=== PATIENT | female | born 1990 | race Caucasian/White ===

== ENCOUNTER 2019-05-05 16:22 | Inpatient (IN) | payer OTHER ==
[~2019-05-05] VITALS: Ht 170.2 cm; Wt 78.5 kg
[2019-05-05 16:23] VITALS: BP 139/69
--- NOTE | 2019-05-05 16:25 | NUR ---
TO LOBBY A/W BED AMBULATORY
--- NOTE | 2019-05-05 17:49 | NUR ---
PT AMBULATED TO ER BED 08
--- NOTE | 2019-05-05 18:15 | NUR ---
PT C/O LOWER ABD PAIN RADIATING TO L SIDE WITH N/V/D SINCE 04/20/19. LAST EMESIS EPISODE WAS AT 1200 THIS AM. DENIES BLOOD IN VOMIT OR DIARRHEA. ABDOMEN SOFT AND FLAT, NON TENDER TO TOUCH. BOWEL SOUNDS ACTIVE IN ALL 4 QUADRANTS. PAIN 4/10 TO ABDOMEN. DENIES DYSURIA. PT ALERT AND AWAKE. HR 101 UPON TRIAGE. PT ALERT AND AWAKE, AMBULATORY WITH STEADY GAIT PMH- ASTHMA, HYPERACTIVE THYROID
--- NOTE | 2019-05-05 18:19 | NUR ---
PT STATES SHE IS UNABLE TO GIVE URINE AT THIS TIME
--- NOTE | 2019-05-05 18:37 | NUR ---
PT PLACED ON CARIDAC MONITOR. HR 141 WHEN TAKEN. HR WAS 101 UPON TRIAGE
--- NOTE | 2019-05-05 18:38 | NUR ---
DR BARNEY AT BEDSIDE
[2019-05-05] MEDS ORDERED: METOPROLOL 5 MG/5 ML VIAL IVP ONE ×2 (18:40→21:35)
[2019-05-05] MEDS ORDERED: NACL 0.9% 500 ML IV ONE (18:40)
[2019-05-05] MEDS ORDERED: PROPYLTHIOURACIL 50 MG TAB PO ONE (18:40)
--- NOTE | 2019-05-05 18:40 | NUR ---
METROPOLOL 5MG/5ML X2 TOTAL OF 10ML IVP
--- NOTE | 2019-05-05 18:53 | NUR ---
CALLED HOUSE SUP FOR MED PTU
--- NOTE | 2019-05-05 18:58 | NUR ---
NADRS AT THIS TIME.
--- NOTE | 2019-05-05 19:04 | NUR ---
CALLED CREATIVE SERVICES WRITER FOR PTU, HE DOES NOT KNOW IF WE HAVE IT. HE WILL CHECK AND GET BACK TO US
--- NOTE | 2019-05-05 19:10 | NUR ---
CALLED MARKETING PROGRAM COORDINATOR FOR MEDICATION. PK MADE AWARE.
[2019-05-05 19:11] LABS: BASOPHILS % (AUTO) 0.2 % (0.0-2.0); EOSINOPHILS # (AUTO) 0.1 K/uL (0-0.4); EOSINOPHILS % (AUTO) 2.1 % (0.0-4.0); HEMATOCRIT 37.6 % (36-48); HEMOGLOBIN 12.5 g/dL (12.0-16.0); LYMPHOCYTES # (AUTO) 1.2 K/uL (2.5-16.5); MEAN CORPUSCULAR HEMOGLOBIN 27 pg (27-31); MEAN CORPUSCULAR HGB CONC 33 g/dL (33-37); MEAN CORPUSCULAR VOLUME 80.8 fL (80-94); MONOCYTES # (AUTO) 0.8 K/uL (0.8-1.0); NEUTROPHILS # (AUTO) 4.2 K/uL (1.8-7.7); NEUTROPHILS % (AUTO) 66.7 % (42.2-75.2); PLATELET COUNT (AUTO) 147 K/uL (140-450); RED BLOOD CELL COUNT(AUTO) 4.66 MIL/uL (4.20-5.40); RED CELL DISTRIBUTION WIDTH 12.7 % (11.6-13.7); WHITE BLOOD COUNT (AUTO) 6.3 K/uL (4.8-10.8)
--- NOTE | 2019-05-05 19:12 | NUR ---
CATTLE DIPPER CALLED AND STATED THAT PRODUCT FINISHER PHARMACIST IS COMING IN. ETA 30 MIN. ERMD MADE AWARE
--- NOTE | 2019-05-05 19:21 | NUR ---
RECEIVED REPORT FROM RAVIN SHANNON. TRANSFER OF CARE AT THIS TIME.
--- NOTE | 2019-05-05 19:24 | NUR ---
PT HEART RATE LOWERED AFTER METOPROLOL GIVEN TO PT. PT PLACED ON MONITOR. RESTING IN BED ON CELLPHONE. WILL CONTINUE TO MONITOR
[2019-05-05 19:26] LABS: ANION GAP 13.4 (8-16); CARBON DIOXIDE 27.2 mmol/L (21-32); CHLORIDE 105 mmol/L (98-107); CREATININE 0.3 mg/dL (0.6-1.3); GFR ARICAN-AMERICAN 343 mL/min (>90); GLUCOSE 94 mg/dL (74-106); POTASSIUM 3.6 mmol/L (3.5-5.1); SODIUM SERUM 142 mmol/L (136-145); UREA NITROGEN, BLOOD 12 mg/dL (7-18)
[2019-05-05 19:41] LABS: ALBUMIN 3.5 g/dL (3.4-5.0); ASPARTATE AMINOTRANSFERASE 32 U/L (15-37); FREE T4 (FREE THYROXINE) 12.54 ng/dL (0.76-1.46); THYROID STIMULATING HORMONE < 0.01 uIU/mL (0.34-3.74); TOTAL BILIRUBIN 2.4 mg/dL (0.0-1.0)
--- NOTE | 2019-05-05 20:19 | NUR ---
PT RESTING IN BED, POSITIONED FOR COMFORT. BED LOCKED AND IN LOW POSITION. X2 SIDE RAILS RAISED. VSS. WILL CONTINUE TO MONITOR.
[2019-05-05] MEDS ORDERED: TAP5 PO (20:50)
--- NOTE | 2019-05-05 21:32 | NUR ---
PT RESTING IN BED, DENIES ANY PAIN. HR REMAINS AT 199. NO FEVER NOTED. RR EVEN AND UNLABORED. PT CALM AND PLEASANT. VSS. WILL CONTINUE TO MONITOR.
--- NOTE | 2019-05-05 22:44 | NUR ---
Patient will be admitted to care of DR EMERSON. Admited to TELE. Will go to room 105B. Belongings list completed. Report to RAVIN OLSEN.
[2019-05-05 22:56] VITALS: BP 122/82
--- NOTE | 2019-05-05 22:56 | NUR ---
[facility] , [facility] , NID -O2 SAT 99% BP WNL , AFEBRILE , IV SITE INTACT AND PATENT , AMBULATE TO BED - COOPERATIVE ,ON CARDIAC MONITORING , WITH HX OF OVER ACTIVE THYROID . ADMISSION ASSESSMENT DONE - MRSA SPECIMEN COLLECTED AND SEND TO LAB.PLAN OF CARE DISCUSSED AND VERBALIZED UNDERSTANDING - CALL LIGHT WITHIN REACH . WILL CONT. TO MONITOR. Addendum: 05/06/19 at 0406 by Robyn Israel RN CALL LIGHT WITHIN REACH . REMINDS HER THE USE OG CALL LIGHT WHENEVER SHE NEEDED ANYTHING/ HELP . ON SAFETY / FALL PRECAUTION PROTOCOL.
--- NOTE | 2019-05-05 23:15 | NUR ---
ON CARDIAC DIET OEDERED BY COMMERCIAL SALES DIRECTOR - DR Ronny MATA - PT ATE FOOD - TOLERATED.
--- NOTE | 2019-05-06 | NUR ---
CR 124 - MADE ROUNDS , PT. COMFORTABLY LYING ON BED - NO COMPLAIN MADE AT THIS TIME.
--- NOTE | 2019-05-06 02:00 | NUR ---
MADE ROUNDS - SLEEPING - CHEST RISE AND FALL EQUALLY - WILL CONT. TO MONITOR.
[2019-05-06 04:00] VITALS: BP 130/70
--- NOTE | 2019-05-06 04:25 | NUR ---
CR 124 , PT SAID SHE FEELS LIKE SHE WILL HAVE ASTHMA ATTACK - REFER TO SUPERVISOR MARBLE -DR Ronny JIMENEZ.
--- NOTE | 2019-05-06 04:30 | NUR ---
DR. MATA CALL BACK AND MADE AND ORDER , CARRIED OUT - WILL REFER TO RT FOR FURTHER ASSESSMENT .
[2019-05-06] MEDS ORDERED: METOPROLOL 25 MG TAB PO SCH (04:35)
--- NOTE | 2019-05-06 04:45 | NUR ---
S/E BY RT - HE SAID PT HAS NO WHEEZES , LUNGS ARE CLEAR . PT REQUESTING IF SHE WILL USE HER OWN ALBUTEROL NEEDED .- WILL REFER TO MANAGER HEALTH.
--- NOTE | 2019-05-06 07:15 | NUR ---
RECEIVED BEDSIDE REPORT FROM NIGHTSHIFT NURSE. PT ASLEEP IN BED. RESPONSIVE TO VERBAL AND TACTILE STIMULI. ABLE TO MAKE NEEDS KNOWN. RESPIRATIONS EVEN AND UNLABORED WITH NO SOB OR RESPIRATORY DISTRESS. IV SITE LA 20G CLEAN,DRY, AND INTACT. NO COMPLICATIONS NOTED. SAFETY MEASURES IN PLACE. WILL CONTINUE TO MONITOR.
[2019-05-06 08:00] VITALS: BP 136/76
--- NOTE | 2019-05-06 09:07 | NUR ---
PATIENT HAS BEEN SCREENED AND CATEGORIZED HIGH NUTRITION RISK. PATIENT WILL BE SEEN WITHIN 1-2 DAYS OF ADMISSION. 05/05/19-05/07/[address]
--- NOTE | 2019-05-06 10:00 | NUR ---
PT RESTING IN BED. ABLE TO MAKE NEEDS KNOWN. RESPIRATIONS EVEN AND UNLABORED WITH NO SOB OR RESPIRATORY DISTRESS. SKIN WARM AND DRY TO TOUCH. NO COMPLAINTS OR CONCERNS. SAFETY MEASURES IN PLACE.
--- NOTE | 2019-05-06 11:12 | NUR ---
HOURLY ROUNDING. PT RESTING IN BED. NO COMPLAINTS OR CONCERNS. ABLE TO MAKE NEEDS KNOWN. RESPIRATIONS EVEN AND UNLABORED WITH NO SOB OR RESPIRATORY DISTRESS. SAFETY MEASURES IN PLACE
[2019-05-06 12:00] VITALS: BP 134/74
[2019-05-06] MEDS ORDERED: PROPRANOLOL 20 MG TAB PO SCH (12:55)
[2019-05-06] MEDS ORDERED: PROPYLTHIOURACIL 50 MG TAB PO SCH (12:56)
--- NOTE | 2019-05-06 13:15 | NUR ---
Reed Dipper Note: Basic Screen: Yes High Risk DC Screen [place]: KAITY Vee Relationship: SIGNIFICANT OTHER Pre-Admission Living Arrangements: Lives with Other Prior ADL Independent Current Home Health Name/Tel: N/A Current DME/02 Name/Tel: N/A Current Hospice Name/Tel: N/A Current Dialysis Name/Tel: N/A Healthcare Decision Maker: Patient Advance Directive No - REFUSED Information Taught: Advance Directive Community Resources Person Taught: Patient Teaching Tools: Verbal Factors Affecting Learning: None Participation Level: Refused Evaluation: Verbalizes Understanding Needs Additional Education: No Discipline: Case Mgt/Social Svcs Tentative Discharge Plan/Destination: No Needs Identified Will require assistance post discharge: No Referred to [facility]ogs[facility] Stock Clerk: No Tentative Discharge Plan Summary: Patient is a 29-year-old female admitted for abdominal pain. Patient has PMHX of grave's disease, hyperthyroidism, and asthma. Patient was admitted from home. SW verified demographics with patient. Patient reports no history of mental health and no history of substance abuse. SW provided eduation on advanced directive and patient refused. Patient's tentative discharge plan is to return home. No further needs identified. Signature: MOSES Piedra Date: May 06, 2019 Time: 13:15
[2019-05-06] MEDS: PROPRANOLOL 20 MG TAB PO SCH ×2 (13:41→21:02)
--- NOTE | 2019-05-06 13:41 | NUR ---
ADMINISTERED MEDICATION PRESCRIBED PER MD ORDER. PT TOLERATED WELL. MEDICATION EDUCATION PERFORMED. PT TOLERATED WELL. PT VERBALIZED UNDERSTANDING. SAFETY MEASURES IN PLACE
--- NOTE | 2019-05-06 14:59 | NUR ---
PCP Appointment: SON contacted Julissa from Dr. Rickey Robertson's office [phone]. SON arranged for hospital follow up appointment to be at 1000 on 05/13/2019 @ [address] [place] [address]. Patient's appointment slip was left in chart to be given at discharge. No further needs identified.
--- NOTE | 2019-05-06 15:57 | NUR ---
05/06/19 RD INITIAL ASSESSMENT COMPLETED PLEASE REFER TO NUTRITION ASSESSMENT UNDER CARE ACTIVITY FOR ESTIMATED NUTRITIONAL NEEDS. 1. RECOMMEND REGULAR DIET TOLERATED 2. EDUCATION ON VOMITING, DIARRHEA, HIGH PROTEIN AND ENERGY DIET WERE PROVIDED TO PT. 3. RD TO FOLLOW-UP 5-7 DAYS, LOW RISK UNIQUE RENE, RD
[2019-05-06 16:00] VITALS: BP 139/78
--- NOTE | 2019-05-06 16:15 | NUR ---
PT RESTING IN BED WITH FAMILY AT BEDSIDE. RESPIRATIONS EVEN AND UNLABORED WITH NO SOB OR RESPIRATORY DISTRESS. SKIN WARM AND DRY TO TOUCH. NO COMPLAINTS OR CONCERNS AT THIS TIME. SAFETY MEASURES IN PLACE. WILL CONTINUE TO MONITOR
--- NOTE | 2019-05-06 17:30 | NUR ---
HOURLY ROUNDING. PT IN BED WITH FAMILY AT BEDSIDE. RESPIRATIONS EVEN AND UNLABORED WITH NO SOB OR RESPIRATORY DISTRESS. SKIN WARM AND DRY TO TOUCH. NO COMPLAINTS OR CONCERNS AT THIS TIME. SAFETY MEASURES IN PLACE. WILL CONTINUE TO MONITOR
[2019-05-06] MEDS ORDERED: HYDROcodone/APAP 5/325 MG 1 TAB TAB PO PRN (17:45)
--- NOTE | 2019-05-06 18:45 | NUR ---
PT ASLEEP IN BED. RESPONSIVE TO VERBAL AND TACTILE STIMULI. RESPIRATIONS EVEN AND UNLABORED WITH NO SOB OR RESPIRATORY DISTRESS. SKIN WARM AND DRY TO TOUCH. NO COMPLAINTS OR CONCERNS AT THIS TIME. SAFETY MEASURES IN PLACE. WILL CONTINUE TO MONITOR
--- NOTE | 2019-05-06 19:15 | NUR ---
RECEIVED PATIENT FROM AM SHIFT NURSE. PATIENT LYING ON BED AWAKE AND ALERT WITH ONGOING PELVIC ULTRASOUND AT THIS TIME. IV ACCESS ON LEFT FOREARM 20 GAUGE SALINE LOCK. INITIAL ASSESSMENT DONE. VITAL SIGNS TAKEN. TELE MONITORING IN PLACE. PATIENT IS AMBULATORY. SKIN IS INTACT.ON ROOM AIR. CALL LIGHT PLACED WITHIN PATIENT REACH. BED IN LOW. WILL CONTINUE TO MONITOR PATIENT.
[2019-05-06 20:00] VITALS: BP 139/59
[2019-05-06] MEDS: PROPYLTHIOURACIL 50 MG TAB PO SCH (21:02)
--- NOTE | 2019-05-06 21:05 | NUR ---
ROUNDS DONE. VISIBLE CHEST RISE AND FALL NOTED. WILL CONTINUE TO MONITOR PATIENT.
[2019-05-06] MEDS ORDERED: DICYCLOMINE HCL LIQUID 10 MG/5 ML UDC PO PRN (21:10)
[2019-05-07 00:05] VITALS: BP 130/59
--- NOTE | 2019-05-07 00:05 | NUR ---
VITALS TAKEN AT THIS TIME. NO DISTRESS NOTED. WILL CONTINUE TO MONITOR PATIENT.
--- NOTE | 2019-05-07 02:03 | NUR ---
ROUNDS DONE. VISIBLE CHEST RISE AND FALL NOTED. WILL CONTINUE TO MONITOR PATIENT.
[2019-05-07 04:05] VITALS: BP 131/63
--- NOTE | 2019-05-07 05:00 | NUR ---
PTU QUANTITY NOT ENOUGH IN OMNICELL. SPOKE TO SOLE ROUGHER KELLY. SAID TO ENDORSE TO AM SHIFT NURSE TO ADMINISTER 4 TABLETS OF PTU 50MG EACH WHEN AVAILABLE FROM PHARMACY.
[2019-05-07] MEDS: PROPRANOLOL 20 MG TAB PO SCH ×2 (06:01→13:00)
--- NOTE | 2019-05-07 07:05 | NUR ---
PATIENT IN STABLE CONDITION. CALL LIGHT WITHIN PATIENT REACH. ENDORSED TO AM SHIFT NURSE FOR CONTINUITY OF CARE.
--- NOTE | 2019-05-07 07:06 | NUR ---
RECEIVED REPORT FROM ESTIMATOR PAPERBOARD BOXES NURSE, PATIENT IN STABLE CONDITION, WILL CONTINUE TO MONITOR.
[2019-05-07 08:00] VITALS: BP 122/63
--- NOTE | 2019-05-07 08:30 | NUR ---
CALLED PHARMACY REGARDING PTU, THEY WILL BRING IT IN 10 MINS. WILL FOLLOW UP.
[2019-05-07] MEDS ORDERED: PANTOPRAZOLE 40 MG INJ VIAL IVP SCH (09:00)
[2019-05-07] MEDS: PROPYLTHIOURACIL 50 MG TAB PO SCH ×2 (09:03→12:59)
--- NOTE | 2019-05-07 09:15 | NUR ---
PTU GIVEN AT THIS TIME. PATIENT IN STABLE CONDITION ON HER PHONE. WILL CONTINUE TO MONITOR
--- NOTE | 2019-05-07 11:15 | NUR ---
ABD U/S COMPLETED, WILL FOLLOW UP WITH DR EMERSON FOR POSSIBLE DISCHARGE ORDERS, PATIENT IS REQUESTING TO BE DISCHARGE SOON.
[2019-05-07 12:00] VITALS: BP 118/61
--- NOTE | 2019-05-07 14:25 | NUR ---
PER VERBAL ORDER FROM DR EMERSON, TO DC PATIENT, FOLLOW UP WITH ENDOCRINE AND CONTINUE CURRENT MEDICATIONS. WILL START DC PROCESS, PATIENT IN BED IN STABLE CONDITION.
[2019-05-07] MEDS ORDERED: PTU50 PO (16:36)
[2019-05-07] MEDS ORDERED: PROP20TA29 PO (16:40)
--- NOTE | 2019-05-07 16:45 | NUR ---
DISCHARGE INSTRUCTIONS GIVEN TO PATIENT. PATIENT VERBALIZED UNDERSTANDING TO FOLLOW UP WITH ENDOCRINE, PATIENT WILL GET DRESS FOR DC.
--- NOTE | 2019-05-07 17:05 | NUR ---
PATIENT READY FOR DISCHARGE, BELONGINGS WITH PATIENT, NOTE FOR WORK AND RX GIVEN TO PATIENT. IV DISCONTINUED , WITH LUMEN INTACT, NO SWELLING OR REDNESS NOTED. PATIENT IN STABLE CONDITION AND PATIENT ESCORTED WITH MOTHER AND DAUGHTER TO LOBBY. PATIENT WAS DC AT THIS TIME.
[2019-05-08 19:58] LABS: T3 UPTAKE > 56 % (24 - 39)
[2019-05-08 19:59] LABS: T4 (THYROXINE) 24.9 ug/dL (4.5 - 12.0)
== END 2019-05-07 17:05 | disposition home or self-care (01) | DRG 427 ==
LOC: MED 16:22 → MTU 21:43
PROVIDERS: ADMIT Internal Medicine; ATTEND Internal Medicine
DX: E05.91 Thyrotoxicosis, unspecified with thyrotoxic crisis or storm (principal); E03.9 Hypothyroidism, unspecified; J45.909 Unspecified asthma, uncomplicated; R00.0 Tachycardia, unspecified
CPT/HCPCS: 36415; 76705; 76856; 80053; 84436; 84439; 84443; 84479; 85025; 87081; 96361; 96374; 96376; 99285; C9113; J3490; J7030; Q0092